=== PATIENT | female | born 1955 | race Caucasian/White ===

== ENCOUNTER → 2021-01-28 01:53 | Outpatient (CLI) | payer OTHER, SELFPAY ==
[2021-01-28 19:28] LABS: SARS-CoV-2 RNA PCR Negative
== END ==
PROVIDERS: PCP Internal Medicine; Visit Provider Internal Medicine Gastroenterology
DX: Z01.812 Encounter for preprocedural laboratory examination (principal); Z20.822 Contact with and (suspected) exposure to COVID-19
CPT/HCPCS: C9803; U0003; U0005

== ENCOUNTER 2021-01-31 02:00 | Day surgery (SDC) | payer OTHER, SELFPAY ==
[2021-01-13 15:01] VITALS: BMI 29.3
[2021-01-31 07:58] VITALS: BP 131/79; PULSE 68; RESP 16; TEMP 36.8; O2SAT 97; BMI 29.7
[2021-01-31] MEDS: LACTATED RINGERS 1,000 ML 150 ML IV CONT (08:11)
--- NOTE | 2021-01-31 08:44 | WPDANESEPPF ---
Anes - Initial Pre Proc Eval Procedure: Operation Date: 01/31/21 09:15 Proposed Procedures p Esophagogastroduodenoscopy - Harmeet Lai MD Date/Time: 01/31/21 08:44 Surgeon: Harmeet Lai MD Pre Op Diagnosis: Dysphagia Patient Data Age: 65 Gender: F Height: 5 ft 5 in Weight: 81 kg Last Vital Signs Temp 98.3 F 01/31/21 07:58 Pulse 68 01/31/21 07:58 Resp 16 01/31/21 07:58 BP 131/79 01/31/21 07:58 Pulse Ox 97 01/31/21 07:58 Allergies Allergy/AdvReac Type Severity Reaction Status Date / Time No Known Allergies Allergy Verified 01/31/21 07:52 Home Medications Medication Instructions Recorded Confirmed Type pantoprazole 40 mg tablet,delayed 40 mg PO QAM #30 tablet 12/20/20 01/13/21 Rx release Patient hx anesthesia problems: none Family hx anesthesia problems: none PMFSH Past Medical History Medical History GERD (gastroesophageal reflux disease) Hyperglycemia Rosacea Spina bifida Social History Social History (Updated 12/20/20 @ 10:06 by Ana Denson CMA) Years smoked: 10 Smoking status: Former smoker Tobacco type: cigarettes Alcohol intake: current Drinks per week: 1 Alcohol use details: wine Substance use: former Living arrangements: with family Gender identity (if verbalized by the patient): Female Spiritual care concerns: No Anes - Eval Final PreProcedure Day of Procedure 01/31/21 08:44 Patient weight: normal Heart: regular rate and rhythm Lungs: clear to auscultation Airway: Mallampati scale class II Neurological: alert and oriented Last oral intake: >/= 8 hours ASA classification: II Emergent: no Anesthetic plan: proceed Anesthesia type and monitoring: general GIVS and standard monitoring Informed Consent: The patient's anesthetic plan and its attendant risks and benefits were discussed with the patient/family/POA. Questions were solicited and answers provided to the satisfaction of the patient/family/POA.
--- NOTE | 2021-01-31 08:56 | PM.HPGS ---
History of Present Illness History of Present Illness Consent: Risks, benefits, and alternatives have been discussed and questions answered. Patient agrees to proceed with procedure. Chief complaint: Dysphagia Narrative: France Schmitt is a 65 year old female with epigastric pain and nausea but better after using ppi, she is not taking as many nsaid's anymore Review of Systems Constitutional: Constitutional: Denies headache(s) and Denies weakness Eyes: Eyes: Denies blurry vision ENT: Reports Normal hearing present, Denies headache(s) and Denies neck pain Cardiovascular: Cardiovascular: Denies chest pain and Denies dyspnea Respiratory: Respiratory: Denies dyspnea Gastrointestinal: Gastrointestinal: Reports no additional gastrointestinal complaints Genitourinary: Genitourinary: Denies dysuria Musculoskeletal: Musculoskeletal: Denies neck pain Integumentary/Breasts: Skin/Breast: Denies dry skin Neurologic: Reports Normal hearing present, Denies headache(s) and Denies weakness Psychiatric: Psychiatric: Denies anxiety Endocrine: Endocrine: Denies change in body appearance Hematologic/Lymphatic: Hematologic/Lymphatic: Denies easy bleeding Allergic/Immunologic: Allergic/Immunologic: Denies urticaria PMFSH Past Medical History Medical History GERD (gastroesophageal reflux disease) Hyperglycemia Rosacea Spina bifida Social History Social History (Updated 12/20/20 @ 10:06 by Ana Desnon CMA) Years smoked: 10 Smoking status: Former smoker Tobacco type: cigarettes Alcohol intake: current Drinks per week: 1 Alcohol use details: wine Substance use: former Living arrangements: with family Gender identity (if verbalized by the patient): Female Spiritual care concerns: No Meds Home Medications and Allergies Home Medications Medication Instructions Recorded Confirmed Type pantoprazole 40 mg tablet,delayed 40 mg PO QAM #30 tablet 12/20/20 01/13/21 Rx release Allergies Allergy/AdvReac Type Severity Reaction Status Date / Time No Known Allergies Allergy Verified 01/31/21 07:52 Vital Signs Vital Signs - 24 hr 01/31/21 07:58 Temperature 98.3 F Pulse Rate 68 Respiratory Rate 16 Blood Pressure 131/79 Pulse Oximetry 97 Exam Const: General: comfortable and no acute distress HENMT: General nose exam: Normal nares present Eyes: General: appearance normal, both eyes and all related structures Neck: Neck: no JVD Resp: Auscultation: clear to auscultation bilaterally Cardio: Rate: regular rate Rhythm: regular rhythm GI: Inspection: non-distended GI Palp: Yes Soft to palpation Skin: General skin exam: normal color Neuro: General: gait normal Speech: normal speech Extrem: General: normal to inspection Psych: Mental Status: mental status grossly normal Assessment and Plan Assessment and plan (1) GERD (gastroesophageal reflux disease): Code(s): K21.9 - Gastro-esophageal reflux disease without esophagitis Status: Acute Assessment and Plan: egd with bx
[2021-01-31 09:10] VITALS: BP 125/80; PULSE 68; RESP 15; O2SAT 98
[2021-01-31 09:20] VITALS: BP 120/78; PULSE 70; RESP 17; O2SAT 99
[2021-01-31 09:30] VITALS: BP 136/70; PULSE 63; RESP 16; O2SAT 99
== END 2021-01-31 09:45 | disposition home or self-care (01) ==
PROVIDERS: PCP Internal Medicine; Visit Provider Internal Medicine Gastroenterology
PROC: 0DJ08ZZ Inspection of Upper Intestinal Tract, Via Natural or Artificial Opening Endoscopic (ICD-10-PCS; CPT 43235; principal; 2021-01-31 09:15)
DX: K21.9 Gastro-esophageal reflux disease without esophagitis (principal); K29.50 Unspecified chronic gastritis without bleeding; R13.10 Dysphagia, unspecified; R73.9 Hyperglycemia, unspecified; L71.9 Rosacea, unspecified; Q05.9 Spina bifida, unspecified; Z87.891 Personal history of nicotine dependence
CPT/HCPCS: 43239; 88305; C9803; J2001; J2704; J7120; U0003; U0005

== ENCOUNTER → 2021-11-14 13:15 | Outpatient (CLI) | payer OTHER, SELFPAY ==
--- NOTE | ~2021-11-14 | MR_ITS ---
EXAMINATION: MR lumbar spine wo con DATE: 11/14/2021 13:53 INDICATION: Spinal stenosis TECHNIQUE: Magnetic resonance imaging (MRI) of the lumbar spine was performed without intravenous con trast. Sequences included sagittal T2-weighted FSE, sagittal T2-weighted FS FSE, sagittal T1-weighted FSE, and axial T2-weighted FSE. COMPARISON: None FINDINGS: 12 degrees lumbar dextroscoliosis. 3 mm anterolisthesis L5 on S1. Vertebral body heights are normal. Severe disc height loss at L4-L5 with associated fibrofatty degenerative endplate changes. Moderate d isc height loss at T11-T12 with fibrofatty and fibrovascular degenerative endplate changes anteriorly . Mild disc height loss at and T10-T11, L5-S1 and the remaining levels from T12-L1 through L3-L4. The conus medullaris terminates at L1-L2. There is normal signal in the caudal spinal cord. Paravertebra l soft tissues are unremarkable. The following disc levels are specifically discussed: T12-L1: Disc is mildly bulging. There is mild bilateral facet joint osteoarthritis. There is no neura l foraminal stenosis. There is mild central canal stenosis. L1-L2: Disc is mildly bulging. There is mild bilateral facet joint osteoarthritis. There is mild bila teral neural foraminal stenosis. There is mild central canal stenosis. L2-L3: Disc is bulging. There is mild left and moderate right facet joint osteoarthritis. There is mi ld bilateral neural foraminal stenosis. There is mild central canal stenosis and narrowing of the lat eral recesses, left greater than right. L3-L4: Disc is mildly bulging. There is moderate right and mild to moderate left facet joint osteoart hritis. There is mild bilateral neural foraminal stenosis. There is mild to moderate central canal st enosis as well as narrowing of the left and right lateral recesses.. L4-L5: Disc is bulging. There is hypertrophy of the ligamentum flavum. There is moderate left and mo derate to severe right facet joint osteoarthritis. There is mild left and moderate right neural swapna inal stenosis. There is mild central canal stenosis along with narrowing of the left and right latera l recesses.. L5-S1: Disc is bulging. There is severe right and moderate to severe left facet joint osteoarthritis. There is moderate bilateral neural foraminal stenosis. There is mild central canal stenosis. There i s also narrowing of the left and right lateral recesses. IMPRESSION: 1. Mild lumbar dextroscoliosis with severe lumbar spondylosis. Reviewed, dictated and finalized at location B. ND BAKER
== END ==
PROVIDERS: Visit Provider Internal Medicine
DX: M48.01 Spinal stenosis, occipito-atlanto-axial region (principal); M41.86 Other forms of scoliosis, lumbar region; M47.816 Spondylosis without myelopathy or radiculopathy, lumbar region
CPT/HCPCS: 72148

== ENCOUNTER 2024-06-24 12:37 | Outpatient (CLI) | payer OTHER, SELFPAY ==
--- NOTE | ~2024-06-24 | MR_ITS ---
EXAMINATION: MR foot LT wo con DATE: 06/24/2024 13:34 INDICATION: Metatarsalgia TECHNIQUE: Magnetic resonance imaging (MRI) of the left fore/mid foot was performed without intraveno us contrast. Sequences included sagittal T1-weighted FSE, sagittal fluid sensitive FSE STIR, coronal PD-weighted FS FSE, coronal T1-weighted FSE, axial PD-weighted FS FSE, and axial PD-weighted FSE. COMPARISON: None FINDINGS: Bone alignment is normal. No fracture, osteonecrosis or pathologic marrow replacing process. There is mild to moderate osteoarthritis at the first metatarsophalangeal and first metatarsal sesamoid artic ulations with prominent subarticular cystlike changes at the plantar aspect of the head of the first metatarsal. Additional mild to moderate osteoarthritis at the calcaneocuboid articulation with small central subchondral osteophyte along the distal articular surface of the calcaneus and with prominent subarticular cystlike change at the medial margin of the proximal articular surface of the cuboid. M ild osteoarthritis at a few of the tarsal metatarsal joints. Visualized portions of the flexor and ex tensor tendons are normal. Intrinsic musculature of the foot is normal. The Lisfranc ligament complex as well as the collateral ligament complex at the metatarsophalangeal and interphalangeal joints are normal. No joint effusions or other abnormal fluid collections. IMPRESSION: 1. 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 Reviewed, dictated and finalized at location A. IMPRESSION: 1. 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
== END 2024-06-24 12:38 ==
LOC: GOSHIMG 12:38
PROVIDERS: PCP Podiatrist Foot & Ankle Surgery; Visit Provider Podiatrist Foot & Ankle Surgery
DX: M19.072 Primary osteoarthritis, left ankle and foot (principal)
CPT/HCPCS: 73718